=== PATIENT | male | born 1960 | race Caucasian/White ===

== ENCOUNTER 2018-10-27 13:05 | Emergency (ER) | payer OTHER ==
--- NOTE | 2018-10-27 13:50 | RAD ---
EXAM: Two views chest PROVIDED CLINICAL HISTORY: Congestion COMPARISON: None FINDINGS: Cardiac silhouette and pulmonary vasculature are within normal limits. The lungs are clear. The oss eous structures have a normal appearance. IMPRESSION: No acute cardiopulmonary process.
[2018-10-27] MEDS ORDERED: Azithromycin 250 MG TAB ONE (14:10)
[2018-10-27] MEDS ORDERED: traMADol HCl 50 MG TAB ONE (14:10)
[2018-10-27] MEDS ORDERED: Benzonatate 100 MG CAP ONE (14:10)
== END 2018-10-27 14:16 | disposition home or self-care (01) ==
LOC: MADERS 13:05
DX: J06.9 Acute upper respiratory infection, unspecified (principal); E78.5 Hyperlipidemia, unspecified; E11.9 Type 2 diabetes mellitus without complications; I10 Essential (primary) hypertension; F41.9 Anxiety disorder, unspecified; F32.9 Major depressive disorder, single episode, unspecified; Z79.899 Other long term (current) drug therapy; Z79.4 Long term (current) use of insulin
CPT/HCPCS: 71046; 87804

== ENCOUNTER 2019-07-02 20:01 | Emergency (ER) | payer OTHER ==
[~2019-07-02 20:01] MED LIST: Iopamidol 370 76% 100 ML VIAL ONE
[2019-07-02] MEDS ORDERED: Morphine 4 MG/ML VIAL ONE (20:50)
[2019-07-02 20:55] LABS: #Basophils 0.1 thou/uL (0.0-0.2); #Lymphocytes 1.3 thou/uL (1.20-3.40); #Monocytes 0.8 thou/uL (0.11-0.59); #Neutrophils 9.6 thou/uL (1.40-6.50); %Basophils 0.8 % (0.0-1.0); %Eosinophils 0.4 % (0.0-10.0); %Lymphocytes 11.2 % (21.0-51.0); %Monocytes 6.6 % (0.0-10.0); %Neutrophils 81.1 % (42.0-75.0); Hemoglobin 12.1 g/dL (14.0-18.0); Mean Corpuscular HGB CONC 31.2 g/dL (32.0-36.0); Mean Corpuscular Hemoglobin 28.9 pg (27.0-31.0); Mean Corpuscular Volume 92.7 fL (78.0-98.0); Mean Platelet Volume 7.9 fL (7.4-10.4); Platelet Count 230 thou/uL (130-400); Red Blood Cell (RBC) Count 4.18 mill/uL (4.70-6.10); White Blood Cell (WBC) Count 11.8 thou/uL (4.8-10.8)
[2019-07-02 21:09] LABS: ALT (SGPT) 23 U/L (8-55); AST (SGOT) 24 U/L (5-34); Albumin 4.2 g/dL (3.5-5.0); Alkaline Phosphatase 89 U/L (40-110); Anion Gap 14 mmol/L (10-20); BUN (Urea Nitrogen) 20 mg/dL (8.4-25.7); Bilirubin, Total 0.3 mg/dL (0.2-1.2); Calc. Creatinine Clearance 0 mL/min (70-130); Calcium 9.4 mg/dL (7.8-10.44); Carbon Dioxide 22 mmol/L (22-29); Chloride 108 mmol/L (98-107); Estimated GFR-MDRD 49; Globulin 2.7 g/dL (2.4-3.5); Glucose 211 mg/dL (70-105); Potassium 4.3 mmol/L (3.5-5.1); Protein, Total 6.9 g/dL (6.0-8.3); Sodium 140 mmol/L (136-145)
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
[2019-07-02] MEDS ORDERED: HYDROcodone/Acetaminophen 10/325 mg Tablet ONE (22:43)
[2019-07-02] MEDS ORDERED: Cyclobenzaprine 10 MG TAB ONE (22:44)
[2019-07-02] MEDS ORDERED: Acetaminophen 325 MG TAB ONE (22:44)
== END 2019-07-02 23:20 | disposition home or self-care (01) ==
LOC: MADERS 20:01
DX: S32.591A Other specified fracture of right pubis, initial encounter for closed fracture (principal); S32.019A Unspecified fracture of first lumbar vertebra, initial encounter for closed fracture; S32.029A Unspecified fracture of second lumbar vertebra, initial encounter for closed fracture; S32.039A Unspecified fracture of third lumbar vertebra, initial encounter for closed fracture; S32.049A Unspecified fracture of fourth lumbar vertebra, initial encounter for closed fracture; V86.59XA Driver of other special all-terrain or other off-road motor vehicle injured in nontraffic accident, initial encounter; I25.10 Atherosclerotic heart disease of native coronary artery without angina pectoris; E11.9 Type 2 diabetes mellitus without complications; E78.5 Hyperlipidemia, unspecified; I10 Essential (primary) hypertension; Z87.442 Personal history of urinary calculi; F32.9 Major depressive disorder, single episode, unspecified; F41.9 Anxiety disorder, unspecified; Z79.82 Long term (current) use of aspirin; Z79.4 Long term (current) use of insulin; Z79.899 Other long term (current) drug therapy
CPT/HCPCS: 71260; 74177; 80053; 85025; 96374; J2270; L0120; Q9967

== ENCOUNTER 2022-08-29 09:51 | Outpatient (CLI) | payer OTHER, SELFPAY | END 2022-08-29 09:52 | disposition home or self-care (01) | LOC: MADRAD 09:51 | PROVIDERS: ATTEND Internal Medicine | DX: M17.0 Bilateral primary osteoarthritis of knee (principal); M19.042 Primary osteoarthritis, left hand; M19.041 Primary osteoarthritis, right hand; R07.81 Pleurodynia | CPT/HCPCS: 71046 ==

== ENCOUNTER 2023-02-22 20:37 | Emergency (ER) | payer OTHER ==
[~2023-02-22 20:37] MED LIST changes: -Iopamidol 370 76% 100 ML VIAL ONE; +Nitroglycerin 0.4 MG TAB 1 EACH ONE
[2023-02-22] MEDS ORDERED: Nitroglycerin 0.4 MG TAB 1 EACH ONE (20:53)
[2023-02-22] MEDS ORDERED: Aspirin Chewable 81 MG TAB ONE (20:53)
[2023-02-22 20:56] LABS: #Basophils 0.1 thou/uL (0.0-0.2); #Eosinphils 0.2 thou/uL (0.0-0.7); #Lymphocytes 2.7 thou/uL (1.20-3.40); #Monocytes 0.4 thou/uL (0.11-0.59); #Neutrophils 3.8 thou/uL (1.40-6.50); %Basophils 1.7 % (0.0-1.0); %Eosinophils 2.6 % (0.0-10.0); %Lymphocytes 37.6 % (21.0-51.0); %Monocytes 5.7 % (0.0-10.0); %Neutrophils 52.4 % (42.0-75.0); Hematocrit 41.3 % (42.0-52.0); Hemoglobin 14.2 g/dL (14.0-18.0); Mean Corpuscular HGB CONC 34.5 g/dL (32.0-36.0); Mean Corpuscular Hemoglobin 30.9 pg (27.0-31.0); Mean Corpuscular Volume 89.4 fl (78.0-98.0); Mean Platelet Volume 7.9 fL (7.4-10.4); Platelet Count 227 10x3/uL (130-400); RBC Distribution Width 12.8 % (11.5-14.5); Red Blood Cell (RBC) Count 4.61 mill/uL (4.70-6.10); White Blood Cell (WBC) Count 7.1 10x3/uL (4.8-10.8)
[2023-02-22 21:15] LABS: ALT (SGPT) 26 U/L (8-55); AST (SGOT) 21 U/L (5-34); Albumin 4.2 g/dL (3.4-4.8); Alkaline Phosphatase 114 U/L (40-110); Anion Gap 17 mmol/L (10-20); BUN (Urea Nitrogen) 25 mg/dL (8.4-25.7); Bilirubin, Total 0.4 mg/dL (0.2-1.2); Calc. Creatinine Clearance 0 mL/min (70-130); Calcium 9.7 mg/dL (7.8-10.44); Carbon Dioxide 19 mmol/L (23-31); Chloride 109 mmol/L (98-107); Estimated GFR 56; Globulin 2.5 g/dL (2.4-3.5); Glucose 278 mg/dL (80-115); Magnesium 1.9 mg/dL (1.6-2.6); Potassium 4.1 mmol/L (3.5-5.1); Protein, Total 6.7 g/dL (5.8-8.1); Sodium 141 mmol/L (136-145)
[2023-02-22 21:17] LABS: Troponin I 0.022 ng/mL (< 0.028)
[2023-02-22] MEDS ORDERED: Nitroglycerin 2% Ointment 1 INCH/1 GM Packet ONE (21:22)
[2023-02-22] MEDS ORDERED: Ondansetron PF 4 MG/2 ML Vial ONE (21:22)
[2023-02-22] MEDS ORDERED: Lactated Ringer's 1,000 ML ONE (21:22)
[2023-02-23 00:57] LABS: Troponin I 0.014 ng/mL (< 0.028)
[2023-02-23] MEDS ORDERED: Acetaminophen 325 MG TAB ONE ×2 (01:30→07:41)
[2023-02-23 06:32] LABS: Troponin I Less than 0.010 ng/mL (< 0.028)
[2023-02-23] MEDS ORDERED: Acetaminophen 650 MG Suppository ONE (07:40)
== END 2023-02-23 09:03 | disposition short-term general hospital (02) ==
LOC: MADERS 20:37
DX: R07.9 Chest pain, unspecified (principal); E11.22 Type 2 diabetes mellitus with diabetic chronic kidney disease; N18.9 Chronic kidney disease, unspecified; I12.9 Hypertensive chronic kidney disease with stage 1 through stage 4 chronic kidney disease, or unspecified chronic kidney disease; E11.65 Type 2 diabetes mellitus with hyperglycemia; I25.10 Atherosclerotic heart disease of native coronary artery without angina pectoris; E78.5 Hyperlipidemia, unspecified; F17.220 Nicotine dependence, chewing tobacco, uncomplicated; Z79.899 Other long term (current) drug therapy; Z79.82 Long term (current) use of aspirin
CPT/HCPCS: 71045; 80053; 83735; 83880; 84484; 85025; 85379; 93005; 94760; 96361; 96374; J2405; J7120